=== PATIENT | male | born 1995 | race Caucasian/White ===

== ENCOUNTER → 2025-03-12 09:15 | Outpatient (CLI) | payer OTHER, SELFPAY ==
[2025-03-12 10:40] LABS: Hemoglobin A1C% w Est Avg Glu 5.1 % (4.0-6.0)
== END ==
PROVIDERS: PCP Family Medicine; Referring Provider Family Medicine; Visit Provider Family Medicine
DX: E66.812 Obesity, class 2 (principal); I10 Essential (primary) hypertension; Z68.36 Body mass index [BMI] 36.0-36.9, adult
CPT/HCPCS: 36415; 83036; 84402; 84403